=== PATIENT | male | born 1940 ===

== ENCOUNTER → 2020-08-14 | Outpatient (CLI) | payer MEDICARE ==
--- NOTE | 2020-08-14 11:56 | RAD ---
EXAM: Left shoulder, 3 views. HISTORY: Fall. COMPARISON: None. FINDINGS: 3 views of the left shoulder obtained. There is glenohumeral joint space narrowing. There i s marginal glenoid and inferior humeral head spurring. There is also degenerative spurring involving the acromial clavicular joint. There is slight decreased subacromial space which is likely projection al or due to chronic rotator cuff pathology. IMPRESSION: 1. Moderate acromioclavicular and glenohumeral osteoarthritis. 2. No acute osseous finding. Electronically signed by: Billie Lopez MD (08/14/2020 11:54 AM) [id number]
== END ==
LOC: RAD 10:58
PROVIDERS: ATTEND Family Medicine
DX: M19.012 Primary osteoarthritis, left shoulder (principal)
CPT/HCPCS: 73030

== ENCOUNTER → 2020-09-25 | Outpatient (CLI) | payer MEDICARE ==
--- NOTE | 2020-09-25 14:52 | KCIC ---
EXAM: MRI LEFT SHOULDER WITHOUT CONTRAST INDICATION: Left shoulder pain, fell in July 2019, decreased range of motion COMPARISON: Left shoulder radiograph 08/14/2020 TECHNIQUE: Multiplanar, multisequence imaging of the left shoulder without contrast. FINDINGS: ROTATOR CUFF: Moderate supraspinatus tendinopathy with small deep partial-thickness articular sided t ear just proximal to the footprint measuring approximately 3 x 4 mm. Infraspinatus, and teres minor t endons are intact. There the subscapularis tendon is very thin in appearance is suspicious for partia l tear. LABRUM: There is superior and posterior labral degeneration. BICEPS TENDON: The biceps tendon is intact and located. ACROMIOCLAVICULAR JOINT: Moderate to severe acromioclavicular degenerative joint disease with large o steophytes. There is fluid in the joint. Type II acromion. GLENOHUMERAL JOINT: Articular cartilage is intact. There are small humeral head osteophytes. OTHER: Small joint effusion and fluid in the subacromial-subdeltoid bursa.. IMPRESSION: 1. Moderate supraspinatus tendinopathy with small deep partial-thickness articular sided tear just pr oximal to the footprint. Diffuse thinning of the subscapular tendon. No definite full-thickness tear. 2. Moderate acromioclavicular degenerative joint disease. 3. Small joint effusion and mild subacromial-subdeltoid bursitis. Electronically signed by: Keyla Merino MD (09/25/2020 2:49 PM) [id number]
== END ==
LOC: KCIC MRI 08:55
PROVIDERS: ATTEND Family Medicine
DX: M75.112 Incomplete rotator cuff tear or rupture of left shoulder, not specified as traumatic (principal); M19.012 Primary osteoarthritis, left shoulder; M25.712 Osteophyte, left shoulder; M25.412 Effusion, left shoulder; M75.52 Bursitis of left shoulder
CPT/HCPCS: 73221